=== PATIENT | male | born 1985 | race Caucasian/White ===

== ENCOUNTER 2024-10-11 05:15 | Emergency (ER) | payer MEDICAID ==
[~2024-10-11] VITALS: Ht 175.3 cm; Wt 102.1 kg
[2024-10-11] MEDS ORDERED: ASPIRIN 81 MG TAB.CHEW ONE (05:35)
[2024-10-11] MEDS ORDERED: HYDROCODONE/APAP 5-325MG TABLET ONE (05:36)
[2024-10-11] MEDS: ASPIRIN 81 MG TAB.CHEW PO ONE (05:40)
[2024-10-11] MEDS: HYDROCODONE/APAP 5-325MG TABLET PO ONE (05:41)
[2024-10-11 05:44] LABS: BASOPHILS # (AUTO) 0.1 K/UL (0.0-0.2); BASOPHILS % (AUTO) 0.9 % (0.0-2.0); EOSINOPHILS # (AUTO) 0.1 K/uL (0.0-0.7); EOSINOPHILS % (AUTO) 1.5 % (0.0-7.0); HEMOGLOBIN 15.8 g/dL (12.5-16.3); LYMPHOCYTES # (AUTO) 1.3 K/uL (0.8-4.8); LYMPHOCYTES % (AUTO) 19.7 % (20.5-51.5); MEAN CORPUSCULAR HEMOGLOBIN 30.9 uug (23.8-33.4); MEAN CORPUSCULAR HGB CONC 34 g/dL (32.5-36.3); MONOCYTES # (AUTO) 0.6 K/uL (0.1-1.30); MONOCYTES % (AUTO) 8.6 % (0.0-11.0); NEUTROPHILS # (AUTO) 4.7 K/uL (1.8-8.9); NEUTROPHILS % (AUTO) 69.3 % (38.5-71.5); PLATELET COUNT (AUTO) 335 K/uL (152-348); RED BLOOD CELL COUNT(AUTO) 5.11 MIL/uL (4.06-5.63); WHITE BLOOD COUNT (AUTO) 6.7 K/uL (3.6-10.2)
[2024-10-11 05:50] LABS: DIFFERENTIAL COMMENT 1
[2024-10-11 05:51] LABS: CARBON DIOXIDE 29 mmol/L (21-32); CHLORIDE 104 mmol/L (98-107); CREATININE 0.7 mg/dL (0.6-1.3); GLUCOSE 97 mg/dL (74-106); POTASSIUM 3.6 mmol/L (3.5-5.1); SODIUM SERUM 142 mmol/L (136-145); UREA NITROGEN, BLOOD 12 mg/dL (7-18)
[2024-10-11 06:16] LABS: ALANINE AMINOTRANSFERASE 57 U/L (16-63); ALBUMIN 3.5 g/dL (3.4-5.0); ALKALINE PHOSPHATASE 57 U/L (50-136); ASPARTATE AMINOTRANSFERASE 30 U/L (15-37); BILIRUBIN,DIRECT 0.1 mg/dL (0.0-0.2); BILIRUBIN,TOTAL 0.5 mg/dL (0.2-1.0); NT-PRO BNP 23 pg/mL (0-125); TOTAL PROTEIN, SERUM 6.8 g/dL (6.4-8.2)
[2024-10-11 08:14] VITALS: BP 124/93; O2SAT 95
== END 2024-10-11 08:17 | disposition home or self-care (01) ==
LOC: ER 05:15
DX: R07.89 Other chest pain (principal); R03.0 Elevated blood-pressure reading, without diagnosis of hypertension; F17.210 Nicotine dependence, cigarettes, uncomplicated; Z60.2 Problems related to living alone
CPT/HCPCS: 99285; 71045; 99406; 80076; 80048; 83880; 85025; 85379; 84484 ×2; 36415; 93005; J7040; A4606; A4663